=== PATIENT | female | born 1990 | race Caucasian/White ===

== ENCOUNTER 2017-07-24 15:19 | Inpatient (IN) | payer MEDICARE, MEDICAID ==
[~2017-07-24] VITALS: Ht 154.9 cm; Wt 101.7 kg
[2017-07-24 17:30] VITALS: BP 120/82
--- NOTE | 2017-07-24 17:30 | NUR ---
A 27, admitted to , under the services of BARBRA Frost DO with a diagnosis of OPIATE WITHDRAWL. Chief complaint is OPIATE WITHDRAWL. Patient arrived via ambulatory from [place]. Monitor applied. Initial assessment completed. Vital signs taken and recorded. BARBRA FROST DO notified of admission to the unit. Orders received. See assessment for past medical history, medications and allergies. Patient and/or family oriented to unit. [facility] visitation policy reviewed. Clothing/patient valuable form completed. ENIO DANG
[2017-07-24 17:41] VITALS: BP 120/82
[2017-07-24 17:42] LABS: BILIRUBIN 1+ (NEGATIVE); BLOOD NEGATIVE (NEGATIVE); CLARITY SL CLOUDY (CLEAR); COLOR YELLOW (YELLOW); GLUCOSE NEGATIVE (NEGATIVE); KETONE TRACE (NEGATIVE); LEUKO ESTERASE 2+ (NEGATIVE); NITRITE NEGATIVE (NEGATIVE); PH 5.5 (5.0-9.0); SPECIFIC GRAVITY >= 1.030 (1.005-1.030); UROBILINOGEN 0.2 E.U./dl (0.2-1.0)
[2017-07-24 17:50] LABS: BACTERIA 3+; CALCIUM OXALATE CRYSTALS 1+; EPITHELIAL CELLS 40-45; WBC 21-30 wbc/hpf (0-5)
[2017-07-24 17:57] LABS: BASO # 0.1 10*3/uL (0.0-0.1); BASO % 0.8 % (0.0-1.0); EOS # 0.1 10*3/uL (0.0-0.4); EOS % 1.4 % (1.0-4.0); HEMATOCRIT 43.3 % (37.0-47.0); HEMOGLOBIN 14.8 g/dl (12.0-16.0); LYMPH # 3.2 10*3/uL (1.3-4.4); LYMPH % 36.8 % (27.0-41.0); MEAN CELL VOLUME 82.8 fl (81.0-99.0); MEAN CORPUSCULAR HGB 28.3 pg (27.0-31.0); MEAN CORPUSCULAR HGB CONC 34.2 g/dl (33.0-37.0); MEAN PLATELET VOLUME 10.7 fl (9.6-12.3); MONO # 0.5 10*3/uL (0.1-1.0); NEUT # 4.7 10*3/uL (2.3-7.9); NEUT % 54.8 % (47.0-73.0); PLATELET COUNT AUTOMATED 404 10*3/uL (130-400); RED BLOOD COUNT 5.23 10*6/uL (4.10-5.10); RED CELL DISTRI WIDTH 13.2 % (0-14.5); WHITE BLOOD COUNT 8.6 10*3/uL (4.8-10.8)
[2017-07-24 18:11] LABS: ALBUMIN 3.9 gm/dl (3.1-4.5); ALKALINE PHOSPHATASE 118 U/L (45-117); BUN 10 mg/dl (7-24); CHLORIDE 107 mmol/L (98-107); CREATININE 0.73 mg/dL (0.55-1.02); POTASSIUM 4.1 mmol/L (3.5-5.1); SGOT/AST 16 IU/L (3-35); SGPT/ALT 30 U/L (12-78); SODIUM 139 mmol/L (136-145); TOTAL PROTEIN 8.5 gm/dL (6.4-8.2)
[2017-07-24 18:17] LABS: ETHYL ALCOHOL < 3.0 mg/dl (<3)
[2017-07-24] MEDS ORDERED: VISTARIL50 MG PO (18:21)
[2017-07-24] MEDS ORDERED: CLONIDINE0.2 MG PO (18:22)
[2017-07-24] MEDS ORDERED: WELLBUTRIN XL300 MG PO (18:23)
[2017-07-24 20:00] VITALS: BP 124/63
[2017-07-24] MEDS ORDERED: NEURONTIN800 MG PO (21:17)
--- NOTE | 2017-07-24 21:31 | NUR ---
PRN TRAZADONE, TYLENOL AND ZOFRAN GIVEN FOR PT COMPLAINTS OF NAUSEA SLEEPLESSNESS AND GENERALIZED MUSCLE ACHES. CALL LIGHT WITHIN REACH, WILL MONITOR
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
--- NOTE | 2017-07-24 22:38 | NUR ---
PRN TRAZADONE GIVEN AGAIN FOR CONTINUED SLEEPLESSNESS. CALL LIGHT WITHIN REACH, WILL MONITOR
--- NOTE | 2017-07-24 22:44 | NUR ---
CALLED DR. CARABALLO AT THIS TIME PERTAINING TO PATIENT STATING THAT SHE IS GOING THROUGH "PRECIPITATED WITHDRAWAL FROM TAKING SUBS (SUBUTEX) TOO EARLY. MY LEGS ARE GOING CRAZY AND I JUST FEEL BAD". THIS NURSE STATED TO THE PATIENT THAT RESTLESS LEGS ARE A SYMPTOM OF WITHDRAWAL. THE PATIENT STILL STATES SHE WOULD LIKE TO SPEAK TO A DOCTOR. DR. CARABALLO STATED HE WOULD BE UP IN A LITTLE BIT TO TALK WITH HER
--- NOTE | 2017-07-24 23:30 | NUR ---
PRN TRAZADONE APPEARS EFFECTIVE, PT SLEEPING
[2017-07-25] VITALS: BP 120/59
[2017-07-25 04:00] VITALS: BP 109/63
--- NOTE | 2017-07-25 06:29 | NUR ---
REQUIP GIVEN PER ORDER FOR C/O RESTLESSNESS OF LEGS. SEE MAR.
[2017-07-25 08:00] VITALS: BP 128/62
--- NOTE | 2017-07-25 08:40 | NUR ---
CALLED TO PATIENTS ROOM WITH C/O NAUSEA/VOMITING AND ANXIETY. PATIENT HAD MODERATE EMESIS DURING ASSESSMENT. ADMINISTERED PO ZOFRAN, BENTYL AND VISTARIL PER ORDER. WILL MONITOR FOR EFFECTIVENESS.
--- NOTE | 2017-07-25 08:50 | NUR ---
Patient reports the following symptoms of withdrawal: body aches, leg pain, nausea, anxiety and cocaine cravings. Patient given scheduled/PRN medication to control withdrawal symptoms. Close observation will be maintained.
--- NOTE | 2017-07-25 09:30 | NUR ---
MEDICATION EFFECTIVE. PT RESTING COMFORTABLY WITH NO FURTHER C/O ANXIETY OR N/V. RESPS REG/EASY WITH NO DISTRESS NOTED AT THIS TIME.
--- NOTE | 2017-07-25 09:45 | NUR ---
Patient resting. Responding to scheduled medications with fewer complaints of NAUSEA and anxiety.
[2017-07-25 12:00] VITALS: BP 124/58
--- NOTE | 2017-07-25 12:30 | NUR ---
PATIENT SLEEPING. RESPS REG/EASY WITH NO DISTRESS NOTED. BED LOW. CALL MANCILLA IN REACH
[2017-07-25 16:00] VITALS: BP 133/78
--- NOTE | 2017-07-25 16:02 | NUR ---
D/C PLANNING: PATIENT IS WANTING INPATIENT TREATMENT. PATIENT IS PLANNING ON GOING TO [facility]. [employer]LE[employer]
--- NOTE | 2017-07-25 16:05 | NUR ---
CALLED TO PATIENTS ROOM. PATIENT CRYING. VERY ANXIOUS. RESTLESS LEGS. STATES "MY LEGS ARE DRIVING ME CRAZY! AND I HAVE BURNING IN MY BACK! I JUST WANT TO LEAVE!" ADMINISTERED PO REQUIP, ROBAXIN AND VISTARIL. THIS NURSE SAT AND TALKED WITH PATIENT. PATIENT WAS ABLE TO CALM DOWN AND STATES "SHE WILL TRY TO MAKE IT THROUGH THIS." WILL MONITOR FOR EFFECTIVENESS.
--- NOTE | 2017-07-25 17:00 | NUR ---
MEDICATION EFFECTIVE. PATIENT MUCH CALMER. INQUIRED ABOUT NEXT SCHEDULED SUBUTEX. RESPS REG/EASY WITH NO DISTRESS NOTED.
--- NOTE | 2017-07-25 19:41 | NUR ---
DR. SEYMOUR NOTIFIED OF PATIENT LEAVING AMA. DIMITRI BENITEZ, [employer] WORKER NOTIFIED OF PATIENT LEAVING AMA.
--- NOTE | 2017-07-25 20:07 | NUR ---
PATIENT LEFT TO ER LOBBY AT THIS TIME WITH BELONGINGS.
[2017-07-26] MEDS ORDERED: KEFLEX500 M1 PO (08:18)
[2017-07-26] MEDS ORDERED: Motrin,Rufen800 MG PO (08:18)
== END 2017-07-25 20:07 | disposition left against medical advice (07) | DRG 894 ==
LOC: 4E 15:19
PROVIDERS: Internal Medicine; ADMIT Internal Medicine
DX: F11.23 Opioid dependence with withdrawal (principal); Z68.41 Body mass index [BMI] 40.0-44.9, adult; N39.0 Urinary tract infection, site not specified; F14.10 Cocaine abuse, uncomplicated; F12.10 Cannabis abuse, uncomplicated; F32.9 Major depressive disorder, single episode, unspecified; F60.3 Borderline personality disorder; G25.81 Restless legs syndrome; E66.01 Morbid (severe) obesity due to excess calories; Z53.21 Procedure and treatment not carried out due to patient leaving prior to being seen by health care provider; F17.210 Nicotine dependence, cigarettes, uncomplicated; Z82.3 Family history of stroke; Z82.49 Family history of ischemic heart disease and other diseases of the circulatory system; Z88.8 Allergy status to other drugs, medicaments and biological substances; Z79.899 Other long term (current) drug therapy

== ENCOUNTER 2017-07-25 21:05 | Emergency (ER) | payer MEDICARE, MEDICAID ==
[~2017-07-25] VITALS: Ht 154.9 cm; Wt 101.2 kg
[~2017-07-25 21:05] MED LIST: CLONIDINE0.2 MG PO; NEURONTIN800 MG PO; VISTARIL50 MG PO; WELLBUTRIN XL300 MG PO
[2017-07-26] MEDS ORDERED: KEFLEX500 M1 PO (08:18)
[2017-07-26] MEDS ORDERED: Motrin,Rufen800 MG PO (08:18)
== END 2017-07-25 23:33 | disposition home or self-care (01) ==
LOC: ED 21:05
DX: Z04.8 Encounter for examination and observation for other specified reasons (principal); Z88.8 Allergy status to other drugs, medicaments and biological substances; F17.210 Nicotine dependence, cigarettes, uncomplicated; F10.10 Alcohol abuse, uncomplicated; Y90.9 Presence of alcohol in blood, level not specified; F19.10 Other psychoactive substance abuse, uncomplicated

== ENCOUNTER 2017-07-26 07:01 | Emergency (ER) | payer MEDICARE, MEDICAID ==
[~2017-07-26] VITALS: Ht 154.9 cm; Wt 101.2 kg
[2017-07-26] MEDS ORDERED: Motrin,Rufen800 MG PO (08:18)
[2017-07-26] MEDS ORDERED: KEFLEX500 M1 PO (08:18)
== END 2017-07-26 09:15 | disposition home or self-care (01) ==
LOC: ED 07:01
DX: K08.89 Other specified disorders of teeth and supporting structures (principal); F17.210 Nicotine dependence, cigarettes, uncomplicated; F41.9 Anxiety disorder, unspecified; E66.9 Obesity, unspecified; G25.81 Restless legs syndrome; Z88.8 Allergy status to other drugs, medicaments and biological substances